=== PATIENT | female | born 1990 | race Two or more races ===

== ENCOUNTER 2017-05-04 03:29 | Emergency (ER) | payer SELFPAY ==
[~2017-05-04] VITALS: Ht 175.3 cm; Wt 81.6 kg
[2017-05-04 04:23] LABS: Basophils # (auto) 0 uL; Basophils % (auto) 0.5 % (0.0-2.0); CONDITION Y; DEFINITIVE SEE PRINTOUT; Eosinophils # (auto) 0.6 uL; Eosinophils % (auto) 5.7 % (0.0-7.0); Hematocrit 35.9 % (36.0-46.0); Hemoglobin 11.3 g/dL (12.2-16.2); Lymphocytes # (auto) 2.1 uL; Lymphocytes % (auto) 19.4 % (10.0-50.0); Mean Corpuscular Hemoglobin 19.6 pg (28.0-32.0); Mean Corpuscular Hgb Conc. 31.5 g/dL (32.0-36.0); Mean Corpuscular Volume 62.3 fL (80.0-100.0); Mean Platelet Volume 9.7 fL (7.4-10.4); Monocytes # (auto) 0.4 uL; Monocytes % (auto) 3.9 % (0.0-12.0); Neutrophils # (auto) 7.7 uL; Neutrophils % (auto) 70.5 % (37.0-80.0); Platelet Count (auto) 338 10^3/uL (140-450); Red Cell Distribution Width 17.2 % (11.6-16.0); White Blood Cell 10.9 10^3/uL (4.4-10.8)
[2017-05-04 04:33] LABS: Urine Bilirubin Negative (Negative); Urine Blood 2+ /uL (Negative); Urine Color Yellow (Yellow); Urine Glucose Normal (Normal); Urine Ketone 3+ (Negative); Urine Mucus FEW (None Seen); Urine Nitrite Negative (Negative); Urine RBC 154 /hpf (0 - 4); Urine Squamous Epithelial Cell FEW /hpf (<5); Urine Urobilinogen Normal (Negative)
[2017-05-04 04:47] LABS: Albumin 3.9 g/dL (3.4-5.0); BUN/Creatinine Ratio 14.7; Calcium 8.6 mg/dL (8.5-10.1)
[2017-05-04 04:48] LABS: Bilirubin, Total 0.7 mg/dL (0.2-1.0); Total Protein 7.6 g/dL (6.4-8.2)
[2017-05-04 04:55] LABS: Potassium 2.7 mmol/L (3.5-5.1)
[2017-05-04] MEDS ORDERED: POTASSIUM CHL 20 Meq TABLET PO ONE (05:00)
[2017-05-04] MEDS ORDERED: ONDANSETRON HCL 4 MG/2 ML VIAL IV ONE (06:00)
[2017-05-04] MEDS ORDERED: HYDROmorphone HCL 2 MG/ML VL IV ONE (06:00)
[2017-05-04] MEDS ORDERED: SODIUM CHLORIDE 0.9% 1,000 ML IV ONE ×2 (07:18)
[2017-05-04] MEDS ORDERED: KETOROLAC TROMETH 30 MG/ML 1ML VIAL IV ONE (07:30)
[2017-05-04 09:44] VITALS: BP 132/70
== END 2017-05-04 09:46 | disposition home or self-care (01) ==
LOC: ER 03:29
DX: N20.0 Calculus of kidney (principal); N83.209 Unspecified ovarian cyst, unspecified side
CPT/HCPCS: 36415; 74176; 80053; 80307; 81001; 82150; 83690; 84702; 85025; 96361; 96374; 96375; 99285; J1170; J1885; J2405; J7030